=== PATIENT | male | born 1970 | race Caucasian/White ===

== ENCOUNTER 2021-01-03 15:19 | Emergency (ER) | payer OTHER ==
[2021-01-03] MEDS ORDERED: Diphtheria,Pertussis(Acell),Tetanus Vaccine 0.5 ML Syringe IM ONE (15:26)
[2021-01-03] MEDS ORDERED: Bacitracin/Neomycin/Polymyxin B Oint 0.9 GM U/D Packet TOP ONE (15:44)
--- NOTE | 2021-01-03 15:47 | EDM.PDOC ---
ED HPI GENERAL MEDICAL PROBLEM - General Chief Complaint: General Stated Complaint: L Hand Lac Time Seen by Provider: 01/03/21 15:25 Source of Information: Reports: Patient History Limitations: Reports: No Limitations - History of Present Illness INITIAL COMMENTS - FREE TEXT/NARRATIVE: Ander is a 50 year old male who presents to ER with laceration to the web between his 4th and 5th digit. Was working with a tool in adjusting the barrel on his shotgun. The tool has a hook to the end and it punctured the web between his fingers. Concerned about the ability to heal without infection due to the area. Has good range of motion to his fingers. bleeding controlled. Unknown last tetanus. Onset: Today Duration: Minutes:, Constant Location: Reports: Upper Extremity, Left Quality: Reports: Ache Severity: Mild Associated Symptoms: Reports: No Other Symptoms lac site Pain Score (Numeric/FACES): 1 - Related Data Allergies Allergy/AdvReac Type Severity Reaction Status Date / Time ciprofloxacin [From Cipro] Allergy Diarrhea Verified 01/03/21 15:22 doxycycline Allergy Cannot Verified 01/03/21 15:22 Remember Penicillins Allergy Rash Verified 01/03/21 15:22 Home Meds: Home Meds Acetaminophen [Tylenol Extra Strength] 500 mg PO ASDIRECTED PRN 02/20/13 [History] Acyclovir 400 mg PO DAILY 02/20/13 [History] Cyclobenzaprine HCl 10 mg PO DAILY PRN 02/20/13 [History] Dayquil 2 cap PO ASDIRECTED PRN 02/20/13 [History] Loperamide [Immodium] 1 mg PO DAILY PRN 02/20/13 [History] Meloxicam [Mobic] 15 mg PO DAILY 02/20/13 [History] Multivitamin [Multivitamins] 1 cap PO DAILY 02/20/13 [History] Omeprazole [Prilosec] 20 mg PO DAILY 02/20/13 [History] Simethicone [Gas Relief] 125 mg PO ASDIRECTED PRN 02/20/13 [History] Glucosamine HCl [Glucosamine] 1,500 mg PO DAILY 02/22/13 [History] Cholecalciferol (Vitamin D3) [Vitamin D3] 5,000 units PO DAILY 11/01/18 [History] Diclofenac Sodium [Voltaren 1% Gel] 1 each TOP BID 11/01/18 [History] Metaxalone [Skelaxin] 800 mg PO Q8HR PRN 11/01/18 [History] Sildenafil Citrate 1 each PO ASDIRECTED PRN 11/01/18 [History] Testosterone Cypionate [Depo-Testosterone] 1 ml INJECT ASDIRECTED 11/01/18 [History] Triamterene/Hydrochlorothiazid [Triamterene-HCTZ 37.5-25 MG] 1 each PO DAILY 11/01/18 [History] amLODIPine Besylate [Amlodipine Besylate] 10 mg PO DAILY 11/01/18 [History] traMADol HCl [Tramadol HCl] 50 mg PO Q6HR PRN 11/01/18 [History] Past Medical History Cardiovascular History: Reports: Hypertension Gastrointestinal History: Reports: GERD - Past Surgical History Musculoskeletal Surgical History: Reports: Shoulder Surgery Other Musculoskeletal Surgeries/Procedures:: R RC repair ~ 2011. L RC repair 11/15/18 Social & Family History - Family History Family Medical History: No Pertinent Family History - Tobacco Use Tobacco Use Status *Q: Current Every Day Tobacco User Years of Tobacco use: 20 Packs/Tins Daily: 1 - Caffeine Use Caffeine Use: Reports: None - Recreational Drug Use Recreational Drug Use: No ED ROS GENERAL - Review of Systems Review Of Systems: See Below Musculoskeletal: Reports: No Symptoms Skin: Reports: Wound Neurological: Reports: No Symptoms ED EXAM, GENERAL - Physical Exam Exam: See Below Exam Limited By: No Limitations General Appearance: Alert, WD/WN, No Apparent Distress Extremities: Normal Inspection, Normal Range of Motion Neurological: Alert, Oriented, No Motor/Sensory Deficits Skin Exam: Warm, Dry, Wound/Incision ED GENERAL MEDICAL PROCEDURES - Laceration/Wound Repair Left Hand Lac/wound length in cm: 0.7 Appearance: Subcutaneous, Linear Distal NVT: Neuro & Vascular Intact Anesthetic Type: Local Local Anesthesia - Lidocaine (Xylocaine): 1% Plain Local Anesthetic Volume: 2cc Skin Prep: Saline, Other (saf-clens) Exploration/Debridement/Repair: Wound Explored, Explored to Base Closed with: Sutures Suture Size: 4-0 # of Sutures: 2 Suture Type: Nylon, Interrupted, Simple Sterile Dressing Applied: Provider Tetanus Status Addressed: Yes Complications: No Course - Vital Signs Last Recorded V/S: Last Vital Signs Temp 97.8 F 01/03/21 15:20 Pulse 89 01/03/21 15:20 Resp 14 01/03/21 15:20 BP 158/99 H 01/03/21 15:26 Pulse Ox 97 01/03/21 15:20 - Orders/Labs/Meds Orders: Active Orders 24 hr Category Date Time Status Vaccine to be Administered/Admin Charge [RC] ASDIRECTED Care 01/03/21 15:26 Active Meds: Medications Discontinued Medications Generic Name Dose Route Start Last Admin Trade Name Freq PRN Reason Stop Dose Admin Diphtheria/Tetanus/Acell Pertussis 0.5 ml 01/03/21 15:26 01/03/21 15:29 Diphtheria,Pertussis(Acell),Tetanus Vaccine 0.5 Ml Syringe IM 01/03/21 15:27 0.5 ml .ONCE ONE Administration Lidocaine HCl 5 ml 01/03/21 15:26 01/03/21 15:28 Lidocaine 1% 5 Ml Sdv INJECT 01/03/21 15:27 5 ml ONETIME ONE Administration Neomycin/Polymyxin/Bacitracin 1 each 01/03/21 15:44 Bacitracin/Neomycin/Polymyxin B Oint 0.9 Gm U/D Packet TOP 01/03/21 15:45 ONETIME ONE Departure - Departure Time of Disposition: 15:45 Disposition: Home, Self-Care 01 Condition: Good Clinical Impression: Laceration - Discharge Information *PRESCRIPTION DRUG MONITORING PROGRAM REVIEWED*: No *COPY OF PRESCRIPTION DRUG MONITORING REPORT IN PATIENT AYAH: No Instructions: Laceration Care, Adult Referrals: PCP,None [Primary Care Provider] - Forms: ED Department Discharge Additional Instructions: 1. Keep wound clean and dry 2. Cover with neosporin daily for 3 days 3. Bandage area to keep protected while exposed to the elements 4. Sutures out in 10 days 5. Follow up if any concerns or questions. Sepsis Event Note (ED) - Evaluation Sepsis Screening Result: No Definite Risk - Focused Exam Vital Signs: Vital Signs Temp Pulse Resp BP Pulse Ox 01/03/21 15:26 158/99 H 01/03/21 15:20 97.8 F 89 14 163/112 H 97 - My Orders Last 24 Hours: My Active Orders 01/03/21 15:26 Vaccine to be Administered/Admin Charge [RC] ASDIRECTED - Assessment/Plan Last 24 Hours: My Active Orders 01/03/21 15:26 Vaccine to be Administered/Admin Charge [RC] ASDIRECTED
== END 2021-01-03 16:05 | disposition home or self-care (01) ==
LOC: CC.ED 15:19
DX: S61.215A Laceration without foreign body of left ring finger without damage to nail, initial encounter (principal); S61.217A Laceration without foreign body of left little finger without damage to nail, initial encounter; I10 Essential (primary) hypertension; K21.9 Gastro-esophageal reflux disease without esophagitis; Z72.0 Tobacco use; Z79.899 Other long term (current) drug therapy; Z88.8 Allergy status to other drugs, medicaments and biological substances; Z23 Encounter for immunization; Z88.0 Allergy status to penicillin; W23.1XXA Caught, crushed, jammed, or pinched between stationary objects, initial encounter
CPT/HCPCS: 12001; 90471; 90715; 99282-25

== ENCOUNTER → 2021-06-11 | Day surgery (SDC) | payer OTHER ==
[~2021-06-11] MED LIST: Flumazenil 0.1 MG/ML 10 ML MDV ONE; Lactated Ringers 1,000 ML IV SCH; Midazolam 1 MG/ML 2 ML SDV ONE; Phenylephrine 1% 10 MG/ML SDV ONE; Propofol 200 MG/20 ML SDV ONE; fentaNYL 100 MCG/2 ML SDV ONE
== END ==
LOC: CC.SDS 07:26
PROVIDERS: ATTEND Family Medicine
DX: Z12.11 Encounter for screening for malignant neoplasm of colon (principal); D12.0 Benign neoplasm of cecum; K57.30 Diverticulosis of large intestine without perforation or abscess without bleeding; I10 Essential (primary) hypertension; R79.89 Other specified abnormal findings of blood chemistry; M19.90 Unspecified osteoarthritis, unspecified site; E66.9 Obesity, unspecified; K21.9 Gastro-esophageal reflux disease without esophagitis; Z88.0 Allergy status to penicillin; Z88.8 Allergy status to other drugs, medicaments and biological substances; Z79.899 Other long term (current) drug therapy; Z98.890 Other specified postprocedural states
CPT/HCPCS: 00812; J2250; J2370; J2704; J3010; J7120

== ENCOUNTER 2023-04-19 08:27 | Day surgery (SDC) | payer OTHER ==
[2023-04-19] MEDS: Lactated Ringers 1,000 ML IV SCH (08:59)
[2023-04-19] MEDS: Clindamycin Phosphate in D5W 600 MG in Premix Bag 1 BAG IV ONE (09:20)
[2023-04-19] MEDS ORDERED: fentaNYL 50 MCG/ML SDV ONE ×2 (09:30)
[2023-04-19] MEDS ORDERED: Dexamethasone 4 MG/ML SDV ONE (09:30)
[2023-04-19] MEDS ORDERED: Midazolam 1 MG/ML 2 ML SDV ONE (09:30)
[2023-04-19] MEDS ORDERED: Propofol 200 MG/20 ML SDV ONE ×2 (09:30)
[2023-04-19] MEDS ORDERED: Ketamine 200 MG/20 ML MDV ONE (09:30)
[2023-04-19] MEDS ORDERED: Lidocaine 2% 20 ML MDV ONE (09:30)
[2023-04-19] MEDS ORDERED: Ondansetron 4 MG/2 ML SDV ONE (09:30)
[2023-04-19] MEDS: Lidocaine 1% with EPINEPHrine 1:100,000 20 ML MDV INJECT ONE (10:17)
[2023-04-19] MEDS: Lidocaine 1% with EPINEPHrine 1:100,000 20 ML MDV SUBCUT ONE (10:28)
== END 2023-04-19 13:40 | disposition home or self-care (01) ==
LOC: CC.SDS 08:27
PROVIDERS: ATTEND Surgery
DX: K42.9 Umbilical hernia without obstruction or gangrene (principal); I10 Essential (primary) hypertension; K21.9 Gastro-esophageal reflux disease without esophagitis; Z88.0 Allergy status to penicillin; Z88.1 Allergy status to other antibiotic agents
CPT/HCPCS: 00752; J1100; J2250; J2405; J2704; J3010; J3490; J7120